=== PATIENT | female | born 1955 | race Caucasian/White ===

== ENCOUNTER → 2020-10-13 | Outpatient (CLI) | payer OTHER ==
[~2020-10-13] VITALS: Ht 162.6 cm; Wt 82.6 kg
[~2020-10-13] MED LIST: ADALAT CC60 MG PO; ALDACTONE 25MG25 MG PO; ALLEGRA ALLERG180 MG PO; CALCIUM ACETAT667 M1 PO; CEFUROXIME250 MG PO; CEPHALEXIN500 MG PO; CLONIDINE1 EAC1 TD; COREG 25MG TAB25 MG PO; ECOTRIN81 MG PO; FLONASE 0.05% N16 GM; GENTLE LAX PO; GLUCOPHAGE500 MG PO; GLUCOTROL XL 5 M5 MG PO; HUMALOG100 UNIT/3 SC; HYDRALAZINE HC100 MG PO; HYDRALAZINE HCL50 MG PO; LANTUS100 UNIT/1 SQ; LASIX80 MG PO; MIRALAX17 GM PO; NEURONTIN 100100 MG PO; NORCO 5-325 TA1 EACH PO; OMEPRAZOLE20 MG PO; PRAVACHOL20 MG PO; PROCARDIA XL60 MG PO; SODIUM BICARBO650 MG PO; SYNTHROID100 MCG PO; VITAMIN D31000 UNI1 PO; ZESTRIL10 MG PO; ZESTRIL40 MG PO; ZOFRAN 4 MG TAB4 MG PO
[2020-10-13 10:46] LABS: HEMOGLOBIN 9.2 gm/dl (12.3-15.3); RED BLOOD COUNT 3.08 M/UL (4.00-5.10); WHITE BLOOD COUNT 4.7 K/UL (4.5-11.0)
== END ==
LOC: OPSV 10:00
PROVIDERS: Internal Medicine Nephrology
DX: I12.9 Hypertensive chronic kidney disease with stage 1 through stage 4 chronic kidney disease, or unspecified chronic kidney disease (principal); N18.30 Chronic kidney disease, stage 3 unspecified; N25.81 Secondary hyperparathyroidism of renal origin
CPT/HCPCS: 80048; 82728; 83540; 83550; 85027; 96372; J1439; J7030

== ENCOUNTER → 2020-10-27 | Outpatient (CLI) | payer OTHER ==
[~2020-10-27] VITALS: Ht 162.6 cm; Wt 82.6 kg
[2020-10-27 09:34] LABS: HEMOGLOBIN 9.6 gm/dl (12.3-15.3); RED BLOOD COUNT 3.24 M/UL (4.00-5.10); WHITE BLOOD COUNT 4.4 K/UL (4.5-11.0)
== END ==
LOC: OPSV 08:58
PROVIDERS: Internal Medicine Nephrology
DX: I12.9 Hypertensive chronic kidney disease with stage 1 through stage 4 chronic kidney disease, or unspecified chronic kidney disease (principal); N18.4 Chronic kidney disease, stage 4 (severe); D63.1 Anemia in chronic kidney disease; N25.81 Secondary hyperparathyroidism of renal origin
CPT/HCPCS: 36415; 80048; 82728; 83540; 83550; 85027; 96372; J0885; Q5105

== ENCOUNTER 2020-11-04 16:55 | Emergency (ER) | payer OTHER ==
[~2020-11-04] VITALS: Ht 162.6 cm; Wt 78.9 kg
[~2020-11-04 16:55] MED LIST changes: -CALCIUM ACETAT667 M1 PO; -CEPHALEXIN500 MG PO; -CLONIDINE1 EAC1 TD; -GENTLE LAX PO; -HUMALOG100 UNIT/3 SC; -PROCARDIA XL60 MG PO; -ZESTRIL10 MG PO
[2020-11-04 17:38] LABS: HEMOGLOBIN 10.6 gm/dl (12.3-15.3); RED BLOOD COUNT 3.52 M/UL (4.00-5.10); WHITE BLOOD COUNT 5.2 K/UL (4.5-11.0)
[2020-11-04 18:05] LABS: BUN/CREATININE RATIO 15 (0-10)
[2020-11-04] MEDS ORDERED: PROCARDIA XL60 MG PO (22:50)
[2020-11-04] MEDS ORDERED: ZESTRIL10 MG PO (22:50)
[2020-11-04] MEDS ORDERED: CLONIDINE1 EAC1 TD (22:56)
[2020-11-04] MEDS ORDERED: HUMALOG100 UNIT/3 SC (22:59)
[2020-11-04] MEDS ORDERED: GENTLE LAX PO (23:01)
== END 2020-11-05 17:38 | disposition home or self-care (01) ==
LOC: ER1 16:55 → CDU 21:35
PROVIDERS: Family Medicine; Internal Medicine
DX: R00.0 Tachycardia, unspecified (principal); R77.8 Other specified abnormalities of plasma proteins; D64.9 Anemia, unspecified; E07.9 Disorder of thyroid, unspecified; E11.22 Type 2 diabetes mellitus with diabetic chronic kidney disease; N18.4 Chronic kidney disease, stage 4 (severe); Z20.822 Contact with and (suspected) exposure to COVID-19; Z88.0 Allergy status to penicillin; Z88.1 Allergy status to other antibiotic agents; Z88.8 Allergy status to other drugs, medicaments and biological substances
CPT/HCPCS: ECHO; 71045; 80048; 80053; 82550; 82553; 82962; 83874; 84439; 84443; 84484; 85025; 85610; 85730; 93005; 93270; 93306; 96374; 96375; 96376; 99284; J1644; J7030; U0002

== ENCOUNTER → 2020-11-14 | Outpatient (CLI) | payer OTHER ==
[~2020-11-14] VITALS: Ht 162.6 cm; Wt 82.6 kg
[~2020-11-14] MED LIST changes: +CALCIUM ACETAT667 M1 PO; +CEPHALEXIN500 MG PO; +CLONIDINE1 EAC1 TD; +GENTLE LAX PO; +HUMALOG100 UNIT/3 SC; +PROCARDIA XL60 MG PO; +ZESTRIL10 MG PO
== END ==
LOC: OPSV 11-10 09:00
DX: I12.9 Hypertensive chronic kidney disease with stage 1 through stage 4 chronic kidney disease, or unspecified chronic kidney disease (principal); N18.4 Chronic kidney disease, stage 4 (severe); N25.81 Secondary hyperparathyroidism of renal origin
CPT/HCPCS: 96372; Q5105

== ENCOUNTER → 2020-11-27 | Outpatient (CLI) | payer OTHER ==
[2020-11-27 11:21] LABS: HEMOGLOBIN 11.4 gm/dl (12.3-15.3); RED BLOOD COUNT 3.78 M/UL (4.00-5.10); WHITE BLOOD COUNT 4.4 K/UL (4.5-11.0)
== END ==
LOC: OPSV 10:53
PROVIDERS: Internal Medicine Nephrology
DX: I12.9 Hypertensive chronic kidney disease with stage 1 through stage 4 chronic kidney disease, or unspecified chronic kidney disease (principal); N18.4 Chronic kidney disease, stage 4 (severe); D63.1 Anemia in chronic kidney disease; N25.81 Secondary hyperparathyroidism of renal origin
CPT/HCPCS: 36415; 80048; 82728; 83540; 83550; 83970; 84100; 85027

== ENCOUNTER → 2020-12-19 | Outpatient (CLI) | payer OTHER ==
[2020-12-19 12:49] LABS: HEMOGLOBIN 10.4 gm/dl (12.3-15.3); RED BLOOD COUNT 3.52 M/UL (4.00-5.10); WHITE BLOOD COUNT 4.9 K/UL (4.5-11.0)
== END ==
LOC: LAB 10:51
PROVIDERS: Internal Medicine Cardiovascular Disease
DX: I12.9 Hypertensive chronic kidney disease with stage 1 through stage 4 chronic kidney disease, or unspecified chronic kidney disease (principal); N18.9 Chronic kidney disease, unspecified; I47.1 Supraventricular tachycardia; R00.2 Palpitations
CPT/HCPCS: 36415; 71046; 80048; 85025

== ENCOUNTER 2020-12-23 09:03 | Outpatient (CLI) | payer OTHER ==
[~2020-12-23] VITALS: Ht 162.6 cm; Wt 80.8 kg
[~2020-12-23 09:03] MED LIST changes: -CALCIUM ACETAT667 M1 PO; -CEPHALEXIN500 MG PO
[2020-12-23] MEDS ORDERED: MIRALAX17 GM PO (10:03)
[2020-12-23] MEDS ORDERED: CALCIUM ACETAT667 M1 PO (10:04)
== END 2020-12-24 10:22 | disposition home or self-care (01) ==
LOC: CATH 09:03 → PROG CARE 15:00 → CATH 12-24 10:22
DX: I47.1 Supraventricular tachycardia (principal); I45.89 Other specified conduction disorders; I49.5 Sick sinus syndrome; E78.5 Hyperlipidemia, unspecified; I12.9 Hypertensive chronic kidney disease with stage 1 through stage 4 chronic kidney disease, or unspecified chronic kidney disease; E11.22 Type 2 diabetes mellitus with diabetic chronic kidney disease; N18.9 Chronic kidney disease, unspecified; E78.00 Pure hypercholesterolemia, unspecified; E03.9 Hypothyroidism, unspecified; K21.9 Gastro-esophageal reflux disease without esophagitis; Z79.4 Long term (current) use of insulin; Z79.82 Long term (current) use of aspirin; Z79.899 Other long term (current) drug therapy; Z82.49 Family history of ischemic heart disease and other diseases of the circulatory system
CPT/HCPCS: 82962; 93005; 93613; 93621; 93623; 99152; 99153; C1730; C1733; C1766; J0360; J0461; J1644; J2250; J3010; J7040; J7050

== ENCOUNTER → 2021-01-01 | Outpatient (CLI) | payer OTHER ==
[~2021-01-01] VITALS: Ht 162.6 cm; Wt 82.6 kg
[~2021-01-01] MED LIST changes: +CALCIUM ACETAT667 M1 PO; +CEPHALEXIN500 MG PO
[2021-01-01 11:05] LABS: HEMOGLOBIN 10.2 gm/dl (12.3-15.3); RED BLOOD COUNT 3.46 M/UL (4.00-5.10); WHITE BLOOD COUNT 4.5 K/UL (4.5-11.0)
== END ==
LOC: OPSV 12-11 11:00
PROVIDERS: Internal Medicine Nephrology
DX: I12.9 Hypertensive chronic kidney disease with stage 1 through stage 4 chronic kidney disease, or unspecified chronic kidney disease (principal); N18.4 Chronic kidney disease, stage 4 (severe); D63.1 Anemia in chronic kidney disease; N25.81 Secondary hyperparathyroidism of renal origin
CPT/HCPCS: 36415; 80048; 82728; 83540; 83550; 85027

== ENCOUNTER → 2021-01-15 | Outpatient (CLI) | payer OTHER ==
[2021-01-15 10:39] LABS: HEMOGLOBIN 9.7 gm/dl (12.3-15.3); RED BLOOD COUNT 3.27 M/UL (4.00-5.10); WHITE BLOOD COUNT 4.3 K/UL (4.5-11.0)
== END ==
LOC: OPSV 10:00
PROVIDERS: Internal Medicine Nephrology
DX: N18.4 Chronic kidney disease, stage 4 (severe) (principal); I10 Essential (primary) hypertension; N25.81 Secondary hyperparathyroidism of renal origin
CPT/HCPCS: 36415; 85027; 96372; Q5105

== ENCOUNTER → 2021-01-29 | Outpatient (CLI) | payer OTHER ==
[~2021-01-29] VITALS: Ht 162.6 cm; Wt 82.6 kg
[2021-01-29 11:03] LABS: HEMOGLOBIN 10.3 gm/dl (12.3-15.3); RED BLOOD COUNT 3.38 M/UL (4.00-5.10); WHITE BLOOD COUNT 5.1 K/UL (4.5-11.0)
== END ==
LOC: OPSV 10:00
PROVIDERS: Internal Medicine Nephrology
DX: I12.0 Hypertensive chronic kidney disease with stage 5 chronic kidney disease or end stage renal disease (principal); N18.5 Chronic kidney disease, stage 5; N25.81 Secondary hyperparathyroidism of renal origin
CPT/HCPCS: 36415; 80069; 82728; 83540; 83550; 83970; 85027; 96365; J1439

== ENCOUNTER → 2021-02-12 | Outpatient (CLI) | payer OTHER ==
[~2021-02-12] VITALS: Ht 162.6 cm; Wt 82.6 kg
[2021-02-12 11:11] LABS: HEMOGLOBIN 9.3 gm/dl (12.3-15.3); RED BLOOD COUNT 3.02 M/UL (4.00-5.10); WHITE BLOOD COUNT 4.1 K/UL (4.5-11.0)
== END ==
LOC: OPSV 10:00
PROVIDERS: Internal Medicine Nephrology
DX: I12.9 Hypertensive chronic kidney disease with stage 1 through stage 4 chronic kidney disease, or unspecified chronic kidney disease (principal); N18.4 Chronic kidney disease, stage 4 (severe); D63.1 Anemia in chronic kidney disease; N25.81 Secondary hyperparathyroidism of renal origin
CPT/HCPCS: 36415; 85027; 96372; Q5106

== ENCOUNTER → 2021-02-26 | Outpatient (CLI) | payer OTHER ==
[~2021-02-26] VITALS: Ht 162.6 cm; Wt 82.6 kg
[2021-02-26 10:47] LABS: HEMOGLOBIN 9.2 gm/dl (12.3-15.3); RED BLOOD COUNT 2.94 M/UL (4.00-5.10); WHITE BLOOD COUNT 4.2 K/UL (4.5-11.0)
== END ==
LOC: OPSV 09:57
PROVIDERS: Internal Medicine Nephrology
DX: I12.9 Hypertensive chronic kidney disease with stage 1 through stage 4 chronic kidney disease, or unspecified chronic kidney disease (principal); N18.4 Chronic kidney disease, stage 4 (severe); D63.1 Anemia in chronic kidney disease; N25.81 Secondary hyperparathyroidism of renal origin
CPT/HCPCS: 36415; 80048; 82728; 83540; 83550; 85027; 96372; Q5106

== ENCOUNTER 2021-02-27 16:50 | Emergency (ER) | payer OTHER ==
[~2021-02-27 16:50] MED LIST changes: -CEPHALEXIN500 MG PO
[2021-02-27 18:03] LABS: HEMOGLOBIN 9.2 gm/dl (12.3-15.3); RED BLOOD COUNT 2.97 M/UL (4.00-5.10)
[2021-02-27] MEDS ORDERED: CEPHALEXIN500 MG PO (21:02)
== END 2021-02-27 21:36 | disposition home or self-care (01) ==
LOC: ER1 16:50
PROVIDERS: Physician Assistant
DX: M79.661 Pain in right lower leg (principal); M79.89 Other specified soft tissue disorders; E11.9 Type 2 diabetes mellitus without complications; Z79.82 Long term (current) use of aspirin; Z88.2 Allergy status to sulfonamides; Z88.0 Allergy status to penicillin; Z88.8 Allergy status to other drugs, medicaments and biological substances
CPT/HCPCS: 80053; 85025; 85379; 85610; 85730; 96372; 99283; J1650

== ENCOUNTER → 2021-02-28 | Outpatient (CLI) | payer OTHER ==
[~2021-02-28] MED LIST changes: +CEPHALEXIN500 MG PO
== END ==
LOC: US 09:52
DX: M79.604 Pain in right leg (principal)
CPT/HCPCS: 93971

== ENCOUNTER → 2021-03-12 | Outpatient (CLI) | payer OTHER ==
[2021-03-12 10:35] LABS: RED BLOOD COUNT 2.9 M/UL (4.00-5.10)
== END ==
LOC: OPSV 09:55
PROVIDERS: Internal Medicine Nephrology
DX: I12.9 Hypertensive chronic kidney disease with stage 1 through stage 4 chronic kidney disease, or unspecified chronic kidney disease (principal); N18.4 Chronic kidney disease, stage 4 (severe); N25.81 Secondary hyperparathyroidism of renal origin; D63.1 Anemia in chronic kidney disease; Q61.3 Polycystic kidney, unspecified; Z76.82 Awaiting organ transplant status
CPT/HCPCS: 36415; 85027; 96372; Q5105

== ENCOUNTER → 2021-03-26 | Outpatient (CLI) | payer OTHER ==
[~2021-03-26] VITALS: Ht 162.6 cm; Wt 82.6 kg
[2021-03-26 10:24] LABS: HEMOGLOBIN 9.2 gm/dl (12.3-15.3); RED BLOOD COUNT 3.01 M/UL (4.00-5.10); WHITE BLOOD COUNT 4.7 K/UL (4.5-11.0)
== END ==
LOC: OPSV 09:43
PROVIDERS: Internal Medicine Nephrology
DX: I12.9 Hypertensive chronic kidney disease with stage 1 through stage 4 chronic kidney disease, or unspecified chronic kidney disease (principal); N18.4 Chronic kidney disease, stage 4 (severe); D63.1 Anemia in chronic kidney disease; N25.81 Secondary hyperparathyroidism of renal origin
CPT/HCPCS: 36415; 80048; 82728; 83540; 83550; 85027; 96372; Q5105

== ENCOUNTER → 2021-04-09 | Outpatient (CLI) | payer OTHER ==
[~2021-04-09] VITALS: Ht 162.6 cm; Wt 82.6 kg
[2021-04-09 10:42] LABS: HEMOGLOBIN 8.9 gm/dl (12.3-15.3); RED BLOOD COUNT 2.91 M/UL (4.00-5.10); WHITE BLOOD COUNT 4.1 K/UL (4.5-11.0)
== END ==
LOC: OPSV 09:55
PROVIDERS: Internal Medicine Nephrology
DX: I12.0 Hypertensive chronic kidney disease with stage 5 chronic kidney disease or end stage renal disease (principal); N18.5 Chronic kidney disease, stage 5; D63.1 Anemia in chronic kidney disease; N25.81 Secondary hyperparathyroidism of renal origin
CPT/HCPCS: 36415; 80069; 83970; 85027; 96372; Q5106

== ENCOUNTER → 2021-04-27 | Outpatient (CLI) | payer OTHER ==
[~2021-04-27] VITALS: Ht 162.6 cm; Wt 82.6 kg
[2021-04-27 10:46] LABS: HEMOGLOBIN 8.6 gm/dl (12.3-15.3); RED BLOOD COUNT 2.87 M/UL (4.00-5.10); WHITE BLOOD COUNT 4.6 K/UL (4.5-11.0)
== END ==
LOC: OPSV 09:59
PROVIDERS: Internal Medicine Nephrology
DX: I12.9 Hypertensive chronic kidney disease with stage 1 through stage 4 chronic kidney disease, or unspecified chronic kidney disease (principal); N18.4 Chronic kidney disease, stage 4 (severe); D63.1 Anemia in chronic kidney disease; Q61.3 Polycystic kidney, unspecified; N25.81 Secondary hyperparathyroidism of renal origin; Z76.82 Awaiting organ transplant status
CPT/HCPCS: 36415; 80048; 82728; 83540; 83550; 85027; 96365; J1439; J7030

== ENCOUNTER → 2021-05-11 | Outpatient (CLI) | payer OTHER ==
[~2021-05-11] VITALS: Ht 162.6 cm; Wt 82.6 kg
[2021-05-11 10:48] LABS: HEMOGLOBIN 7.7 gm/dl (12.3-15.3); RED BLOOD COUNT 2.59 M/UL (4.00-5.10); WHITE BLOOD COUNT 4.2 K/UL (4.5-11.0)
== END ==
LOC: OPSV 10:00
PROVIDERS: Internal Medicine Nephrology
DX: I12.9 Hypertensive chronic kidney disease with stage 1 through stage 4 chronic kidney disease, or unspecified chronic kidney disease (principal); N18.4 Chronic kidney disease, stage 4 (severe); D63.1 Anemia in chronic kidney disease; N25.81 Secondary hyperparathyroidism of renal origin
CPT/HCPCS: 36415; 83540; 83550; 85027; 96372; Q5106

== ENCOUNTER → 2021-05-25 | Outpatient (CLI) | payer OTHER | LOC: OPSV 09:38 | DX: I12.9 Hypertensive chronic kidney disease with stage 1 through stage 4 chronic kidney disease, or unspecified chronic kidney disease (principal); N18.4 Chronic kidney disease, stage 4 (severe); D63.1 Anemia in chronic kidney disease; N25.81 Secondary hyperparathyroidism of renal origin | CPT/HCPCS: 96372; Q5105 ==

== ENCOUNTER → 2021-11-17 | Outpatient (CLI) | payer OTHER | LOC: US 13:08 | DX: I82.409 Acute embolism and thrombosis of unspecified deep veins of unspecified lower extremity (principal); Z86.16 Personal history of COVID-19 | CPT/HCPCS: 93970 ==

== ENCOUNTER 2021-12-12 14:27 | Emergency (ER) | payer OTHER | END 2021-12-12 15:55 | disposition home or self-care (01) | LOC: ER1 14:27 | DX: I10 Essential (primary) hypertension (principal); E11.9 Type 2 diabetes mellitus without complications | CPT/HCPCS: 99283 ==

== ENCOUNTER 2022-02-17 11:04 | Emergency (ER) | payer OTHER ==
[2022-02-17 11:41] LABS: HEMOGLOBIN 9.8 gm/dl (12.3-15.3); RED BLOOD COUNT 3.2 M/UL (4.00-5.10); WHITE BLOOD COUNT 10.8 K/UL (4.5-11.0)
[2022-02-17 12:18] LABS: BUN/CREATININE RATIO 4 (0-10)
[2022-02-17 14:50] LABS: HEMOGLOBIN 8.1 gm/dl (12.3-15.3)
== END 2022-02-17 16:35 | disposition short-term general hospital (02) ==
LOC: ER1 11:04
PROVIDERS: Physician Assistant
DX: K92.2 Gastrointestinal hemorrhage, unspecified (principal); D64.9 Anemia, unspecified; Z88.0 Allergy status to penicillin; I12.0 Hypertensive chronic kidney disease with stage 5 chronic kidney disease or end stage renal disease; N18.6 End stage renal disease; E11.22 Type 2 diabetes mellitus with diabetic chronic kidney disease; Z99.2 Dependence on renal dialysis
CPT/HCPCS: 80053; 82272; 82550; 82553; 83605; 83690; 84484; 85014; 85018; 85025; 86850; 86900; 86901; 93005; 96374; 99285; C9113

== ENCOUNTER 2022-04-09 16:15 | Emergency (ER) | payer OTHER ==
[2022-04-09 17:16] LABS: HEMOGLOBIN 7.6 gm/dl (12.3-15.3); RED BLOOD COUNT 2.45 M/UL (4.00-5.10); WHITE BLOOD COUNT 5.2 K/UL (4.5-11.0)
== END 2022-04-09 20:46 | disposition home or self-care (01) ==
LOC: ER1 16:15
PROVIDERS: Nurse Practitioner
DX: R53.83 Other fatigue (principal); D64.9 Anemia, unspecified; I12.9 Hypertensive chronic kidney disease with stage 1 through stage 4 chronic kidney disease, or unspecified chronic kidney disease; E11.22 Type 2 diabetes mellitus with diabetic chronic kidney disease; N18.9 Chronic kidney disease, unspecified; Z88.0 Allergy status to penicillin; Z91.041 Radiographic dye allergy status
CPT/HCPCS: 80053; 85025; 86850; 86900; 86901; 99284